=== PATIENT | female | born 1995 | race Two or more races ===

== ENCOUNTER 2025-01-27 11:44 | Emergency (ER) | payer MEDICAID, OTHER ==
[~2025-01-27] VITALS: Ht 162.6 cm; Wt 59.0 kg
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
[2025-01-27 12:16] VITALS: BP 101/70; PULSE 110; RESP 24; TEMP 97.6; O2SAT 98
== END 2025-01-27 13:06 | disposition left against medical advice (07) ==
LOC: ER 11:44 → EDBD 11:44 → ER 13:06
DX: S40.811A Abrasion of right upper arm, initial encounter (principal); S40.812A Abrasion of left upper arm, initial encounter; R45.851 Suicidal ideations; F17.210 Nicotine dependence, cigarettes, uncomplicated; F41.9 Anxiety disorder, unspecified; Y08.89XA Assault by other specified means, initial encounter; Y93.89 Activity, other specified; Y92.89 Other specified places as the place of occurrence of the external cause; Y99.8 Other external cause status